=== PATIENT | male | born 2000 | race Two or more races ===

== ENCOUNTER 2021-09-07 16:16 | Emergency (ER) ==
[~2021-09-07] VITALS: Ht 170.2 cm; Wt 66.4 kg
[2021-09-07 16:17] VITALS: BP 146/82
== END 2021-09-07 19:57 | disposition left against medical advice (07) ==
LOC: M ED 16:16
DX: Z53.29 Procedure and treatment not carried out because of patient's decision for other reasons (principal)

== ENCOUNTER 2022-10-15 21:33 | Emergency (ER) | payer SELFPAY ==
[~2022-10-15] VITALS: Ht 170.2 cm; Wt 63.6 kg
[2022-10-15 21:33] VITALS: BP 144/77
== END 2022-10-16 02:54 | disposition left against medical advice (07) ==
LOC: M ED 21:33
DX: Z53.21 Procedure and treatment not carried out due to patient leaving prior to being seen by health care provider (principal)

== ENCOUNTER 2023-10-24 03:20 | Emergency (ER) | payer SELFPAY ==
[~2023-10-24] VITALS: Ht 200.7 cm; Wt 68.7 kg
[2023-10-24 03:21] VITALS: BP 140/73; TEMP 97.6; O2SAT 98
== END 2023-10-24 06:06 | disposition left against medical advice (07) ==
LOC: M ED 03:20
DX: Z53.21 Procedure and treatment not carried out due to patient leaving prior to being seen by health care provider (principal)